=== PATIENT | female | born 1965 | race Caucasian/White ===

== ENCOUNTER 2020-06-29 16:35 | Emergency (ER) | payer OTHER ==
[~2020-06-29] VITALS: Ht 167.6 cm; Wt 86.2 kg
[~2020-06-29 16:35] MED LIST: CLARITIN10 MG PO
[2020-06-29 17:59] LABS: BASO % 0.3 % (0.0-1.0); EOS % 0.6 % (1.0-4.0); HEMATOCRIT 40.2 % (37.0-47.0); LYMPH # 1.4 10*3/uL (1.3-4.4); LYMPH % 39.6 % (27.0-41.0); MEAN CELL VOLUME 92.2 fl (81.0-99.0); MEAN CORPUSCULAR HGB 29.6 pg (27.0-31.0); MEAN CORPUSCULAR HGB CONC 32.1 g/dl (33.0-37.0); MEAN PLATELET VOLUME 9.9 fl (9.6-12.3); MONO # 0.3 10*3/uL (0.1-1.0); MONO % 7.5 % (3.0-9.0); NEUT # 1.8 10*3/uL (2.3-7.9); NEUT % 51.7 % (47.0-73.0); PLATELET COUNT AUTOMATED 142 10*3/uL (130-400); RED BLOOD COUNT 4.36 10*6/uL (4.10-5.10); RED CELL DISTRI WIDTH 12.5 % (0-14.5); WHITE BLOOD COUNT 3.5 10*3/uL (4.8-10.8)
[2020-06-29 18:13] LABS: ALBUMIN 3.5 gm/dl (3.1-4.5); ALKALINE PHOSPHATASE 95 U/L (45-117); BUN 27 mg/dl (7-24); CHLORIDE 109 mmol/L (98-107); CREATININE 0.72 mg/dL (0.55-1.02); SGOT/AST 76 IU/L (3-35); SGPT/ALT 99 U/L (12-78); SODIUM 142 mmol/L (136-145); TOTAL PROTEIN 7.1 gm/dL (6.4-8.2)
[2020-06-29 18:21] LABS: BILIRUBIN 2+ (Negative); BLOOD Negative (Negative); CLARITY Cloudy (Clear); COLOR Dark Yellow (Yellow); GLUCOSE Negative (Negative); KETONE 2+ (Negative); LEUKO ESTERASE 1+ (Negative); NITRITE Negative (Negative); PH 5.5 (4.5-8.0); SPECIFIC GRAVITY >= 1.030 (1.001-1.030)
[2020-06-29 18:40] LABS: MUCOUS 2+
[2020-06-29] MEDS ORDERED: LEVOFLOXACIN500 MG PO (19:04)
[2020-06-29] MEDS ORDERED: DIFLUCAN150 MG PO (19:04)
[2020-06-30] MEDS ORDERED: XANAX0.25 MG PO (11:59)
== END 2020-06-29 20:54 | disposition home or self-care (01) ==
LOC: ED 16:35
PROVIDERS: Emergency Medicine
DX: J32.9 Chronic sinusitis, unspecified (principal); F41.9 Anxiety disorder, unspecified; E87.6 Hypokalemia

== ENCOUNTER 2024-01-05 20:44 | Emergency (ER) | payer OTHER ==
[~2024-01-05] VITALS: Ht 172.7 cm; Wt 94.8 kg
[~2024-01-05 20:44] MED LIST changes: +DIFLUCAN150 MG PO; +LEVOFLOXACIN500 MG PO; +XANAX0.25 MG PO
[2024-01-05] MEDS ORDERED: methylPREDNISolone sod succ 125 MG VIAL IM ONE (21:50)
== END 2024-01-05 22:45 | disposition home or self-care (01) ==
LOC: ED 20:44
DX: S60.455A Superficial foreign body of left ring finger, initial encounter (principal); T63.441A Toxic effect of venom of bees, accidental (unintentional), initial encounter; R60.0 Localized edema; Z88.0 Allergy status to penicillin; Z88.4 Allergy status to anesthetic agent; Z79.2 Long term (current) use of antibiotics; Z79.899 Other long term (current) drug therapy; W49.04XA Ring or other jewelry causing external constriction, initial encounter; Y93.89 Activity, other specified; Y92.89 Other specified places as the place of occurrence of the external cause; Y99.8 Other external cause status